=== PATIENT | male | born 1980 | race Caucasian/White ===

== ENCOUNTER 2020-02-19 13:10 | Inpatient (IN) | payer MEDICAID, SELFPAY ==
[2020-02-19 13:11] VITALS: BP 151/106; PULSE 114; RESP 18; TEMP 36.6; O2SAT 95; BMI 35.9
--- NOTE | 2020-02-19 15:58 | ED.VIS.GEN ---
History of Present Illness Informant: Patient Onset: - - 7 years Context: Gradual Onset Timing: Continuous Quality: myalgias, shakes, nausea Location: everywhere Current Severity: Severe Maximum Severity: Severe Worsened by: nothing Relieved by: nothing Associated Symptoms: myalgias, shakes, nausea Narrative: 39-year-old male history of opiate abuse has been on Suboxone now for 7 years presents for wanting detox from Suboxone. Patient states he has been weaned off to about a quarter of a milligram a day but feels like he needs to be admitted for detox in order to get off of it entirely. He does have some nausea and some shaking. No fevers no vomiting or diarrhea no chest pain or shortness of breath he has not been hallucinating he denies alcohol or other drug use and he has never had inpatient detox Prior similar symptoms: Yes Recent Illness/Hospitalization: No <Vickey Pabon - Last Filed: 02/19/20 16:49> <Matias Grant - Last Filed: 02/19/20 22:14> Chief Complaint: Substance Abuse Past Medical History Prior records reviewed: Yes Past Medical History: - - Anxiety and depression opiate abuse GERD hypothyroidism sleep apnea Surgical History: no surgical history Lives: With Family Smoking Status: Never smoker Alcohol: None Drugs: - - History of opiate abuse on Suboxone <Vickey Pabon - Last Filed: 02/19/20 16:49> - Family History Maternal Family History: Reports: - - Denies known medical history including cardiac history. Paternal Family History: Reports: - - Denies known medical history including cardiac history. <Matias Grant - Last Filed: 02/19/20 22:14> - Allergies and Home Meds Allergies/Adverse Reactions: Allergies amlodipine Allergy (Verified 02/19/20 13:13) Anaphylaxis Review of Systems All systems negative except as indicated General: Denies: Chills, Fever, Sweats Eyes: Denies: Visual changes - bilaterally, Diplopia ENT: Denies: Rhinorrhea, Sore throat Cardiovascular: Denies: Chest pain, Palpitations Respiratory: Denies: Dyspnea, Cough, Dyspnea on exertion Gastrointestinal: Reports: Nausea. Denies: Abdominal pain, Vomiting, Diarrhea, Constipation, Melena, Hematochezia Genitourinary: Denies: Dysuria, Hematuria, Frequency Musculoskeletal: Reports: Myalgias. Denies: Arthralgias, Neck pain, Back pain, Swelling, Extremity Pain Skin: Denies: Rash, Wounds Neurological: Denies: Headache, Weakness, Parasthesia, Numbness <Vickey Pabon - Last Filed: 02/19/20 16:49> Physical Exam Vital Signs/Narrative: Vital Signs Temp Pulse Resp BP Pulse Ox 02/19/20 13:11 98 F 114 H 18 151/106 H 95 Inital Vital Signs reviewed: Yes General: Well nourished, Well developed, No Acute Distress Head: Normocephalic, Atraumatic Eyes: Perrl, EOMI ENT: Moist mucous membranes, No rhinorrhea Neck: Supple, Nontender, No lymphadenopathy Cardiovascular: Regular rate, Regular rhythm, No murmurs Respiratory: No distress, CTA bilaterally, Chest nontender Abdomen: Soft, Nontender, Nondistended, Normal bowel sounds Back: Nontender, Normal Inspection. Negative for: CVA tenderness Extremities: Nontender, No edema Skin: Normal color, No rash Neurological: Alert, Oriented x3, Cranial nerves II-XII grossly intact, Normal Strength, Normal Sensation Psychological: Normal affect, Normal Mood. Negative for: Depressed, Tearful, Agitated <Vickey Pabon - Last Filed: 02/19/20 16:49> Diagnostic/Tx/Re-eval Laboratory Results 02/19/20 02/19/20 02/19/20 15:24 15:24 15:24 WBC 7.7 RBC 4.94 Hgb 16.8 H Hct 48.0 MCV 97.2 H MCH 34.0 H MCHC 35.0 RDW Std Deviation 50.8 H RDW Coeff of Dennis 14.2 Plt Count 276 MPV 9.7 Immature Gran % (Auto) 0.400 Neut % (Auto) 75.5 H Lymph % (Auto) 15.9 L [place] % (Auto) 7.4 Eos % (Auto) 0.1 Baso % (Auto) 0.7 Absolute Neuts (auto) 5.8 Absolute Lymphs (auto) 1.22 Nucleated RBC % 0 Sodium 139 Potassium 3.2 L Chloride 107 Carbon Dioxide 25.0 Anion Gap 7 BUN 9 Creatinine 0.86 Estim Creat Clear Calc 117.89 Est GFR (MDRD) Af Amer 126 Est GFR (MDRD) Non-Af 104 BUN/Creatinine Ratio 10.4 Glucose 89 Calcium 9.4 Urine Opiates Screen Urine Methadone Screen Ur Barbiturates Screen Ur Phencyclidine Scrn Ur Amphetamines Screen U Methamphetamin-MDMA U Benzodiazepines Scrn Urine Cocaine Screen U Cannabinoids Screen Ur Drug Screen Comment Ethyl Alcohol 34.0 02/19/20 15:26 WBC RBC Hgb Hct MCV MCH MCHC RDW Std Deviation RDW Coeff of Dennis Plt Count MPV Immature Gran % (Auto) Neut % (Auto) Lymph % (Auto) [place] % (Auto) Eos % (Auto) Baso % (Auto) Absolute Neuts (auto) Absolute Lymphs (auto) Nucleated RBC % Sodium Potassium Chloride Carbon Dioxide Anion Gap BUN Creatinine Estim Creat Clear Calc Est GFR (MDRD) Af Amer Est GFR (MDRD) Non-Af BUN/Creatinine Ratio Glucose Calcium Urine Opiates Screen NEGATIVE Urine Methadone Screen NEGATIVE Ur Barbiturates Screen NEGATIVE Ur Phencyclidine Scrn NEGATIVE Ur Amphetamines Screen NEGATIVE U Methamphetamin-MDMA NEGATIVE U Benzodiazepines Scrn NEGATIVE Urine Cocaine Screen NEGATIVE U Cannabinoids Screen POSITIVE H Ur Drug Screen Comment Ethyl Alcohol - Medical Decision Making Patient remained calm and cooperative that his stay in the emergency department. His laboratory work-up was remarkable for potassium 3.2. This was replaced with 40 mEq of oral potassium chloride. Drug screen was positive for marijuana. Alcohol was 34. I spoke with the hospitalist to admit the patient for detox. Patient stable at this time. <Vickey Pabon - Last Filed: 02/19/20 16:49> - Medical Decision Making Attending note: Patient seen and evaluated home economist consumer service. I agree with plan and work-up. I performed on [id number] evaluation. Patient here for detox from Suboxone. Has been being weaned down down to 1/4 mg with last dose taken yesterday. He states nausea symptoms and cannot seem to get off it wishes to get help. He is followed at [facility]. Small amount of alcohol today. States had previous history of heroin dependence. Exam alert nontoxic patient in no acute distress. No suicidal ideations. Medical clearance labs obtained, tox screen noted THC. Alcohol slightly. Potassium was 3.2 however declined replacement. Discussed with hospitalist for admission. <Matias Grant - Last Filed: 02/19/20 22:14> ED Disposition <Vickey Pabon - Last Filed: 02/19/20 16:49> <Matias Grant - Last Filed: 02/19/20 22:14> - Plan for ED Patient: Disposition: Acute Care Hospital [facility] Diagnosis: Polysubstance dependence
[2020-02-19 16:02] LABS: Absolute Lymphocyte Count 1.22 X10^3/uL (0.83-4.51); Absolute Neutrophil Count 5.8 X10^3/uL (2.0-7.7); Basophil# 0.05 X10^3/uL; Basophil% 0.7 % (0-1); Eosinophil# 0.01 X10^3/uL; Eosinophils% 0.1 % (0-5); Hemoglobin 16.8 g/dL (13.0-16.5); Lymphocyte # 1.22 X10^3/ul (4.0); Lymphocyte % 15.9 % (19-41); Mean Corpuscular Volume 97.2 fL (80-94); Mean Platelet Vol. 9.7 fl (6.2-12.0); Monocyte# 0.57 X10^3/uL; Monocyte% 7.4 % (0-10); NRBC Flagged by Analyzer 0 % (0-5); Neutrophil # 5.81 X10^3/uL (2.7-7.7); Neutrophil % 75.5 % (47-70); Platelet Count 276 K/mm3 (150-450); RBC Distribution Width CV 14.2 % (11.6-14.6); RBC Distribution Width SD 50.8 fl (35.1-43.9); Red Blood Count 4.94 M/mm3 (4.6-6.2); White Blood Count 7.7 K/mm3 (4.4-11.0)
[2020-02-19 16:07] LABS: Amphetamine Urine VISTA NEGATIVE (<1000 ng/mL); Barbiturate Urine VISTA NEGATIVE (< 200 ng/mL); Benzodiazepine Urine VISTA NEGATIVE (< 200 ng/mL); Cocaine Urine VISTA NEGATIVE (< 300 ng/mL); Ecstacy Urine VISTA NEGATIVE (< 500 ng/mL); Methadone Urine VISTA NEGATIVE (< 300 ng/mL); PCP Urine VISTA NEGATIVE (< 25 ng/mL); THC Urine VISTA POSITIVE (< 50 ng/mL); Vista UDS pH Range 6
[2020-02-19 16:08] LABS: Anion Gap 7 (5-15); BUN 9 mg/dL (7-18); BUN/Creat Ratio 10.4 RATIO (10-20); Calcium,Total 9.4 mg/dL (8.5-10.1); Chloride 107 mmol/L (98-107); Creatinine, Serum 0.86 mg/dL (0.70-1.30); EST Glomerular Filtration Rate 104 mL/min (>60); Est Glom Filt Rate - Afr Amer 126 mL/min (>60); Estimated Creatinine Clearance 117.89 ml/min; Glucose 89 mg/dL (74-106); Potassium 3.2 mmol/L (3.5-5.1); Sodium Level 139 mmol/L (136-145)
[2020-02-19 16:09] VITALS: BMI 35.9
[2020-02-19 16:35] VITALS: BP 160/106; PULSE 111; RESP 18; O2SAT 96
--- NOTE | 2020-02-19 16:47 | NURSING ---
DR WALL FOR DR LINARES
[2020-02-19 16:49] VITALS: BP 160/106; PULSE 111; RESP 18; TEMP 36.4; O2SAT 99
--- NOTE | 2020-02-19 17:01 | PCM.HP.STD ---
<Mali Langford LEGAL DEPARTMENT MANAGER - Last Filed: 02/19/20 17:57> Problem List (1) Polysubstance dependence Status: Acute History of Present Illness Date of Admission: 02/19/20 Chief Complaint: Detox from Suboxone. The patient is a 39 year old M who presents to the emergency room requesting detox from Suboxone. Patient states he has been on Suboxone since 2013 following history of opioid abuse. Patient states he had a prior history of using opioids since his early 20s which progressed to IV heroin. Patient states he has been weaning off of Suboxone under the direction of a physician and took his last dose on . He currently complains of significant anxiety, clamminess, diarrhea and abdominal cramping. He reports he has had recent increased stress and has been using alcohol to cope. He reports he typically drinks a sixpack per day. He also states he is a medical marijuana user. He denies other medical history. Denies tobacco use or other drug use. Past Medical History Allergies amlodipine Allergy (Verified 02/19/20 13:13) Anaphylaxis Home Medications: Ambulatory Orders Medication Instructions Recorded NK 02/19/20 Surgical History: - - Multiple right ankle surgeries, right testicle cystocele repair. Psychiatric History: No pertinent psych hx Lives: With Family Smoking Status: Never smoker Tobacco Use: Non-smoker Alcohol: None Drugs: - - History of opiate abuse on Suboxone - *Family History Maternal History Items: - - Denies known medical history including cardiac history. Paternal History Items: - - Denies known medical history including cardiac history. Review of Systems Constitutional: Reports: Chills. Denies: Fever, Malaise, Weakness HEENT: Denies: Head Aches, Sinus Congestion, Sinus Drainage Cardiovascular: Denies: Chest Pain, Palpitations Respiratory: Denies: Cough, Shortness of breath at rest, Sputum production Gastrointestinal: Reports: Diarrhea, Nausea. Denies: Abdominal Pain, Vomiting Genitourinary: Denies: Dysuria Musculoskeletal: Denies: Joint Pain, Joint Tenderness Skin: Denies: Rash, Wounds Neurological: Denies: Numbness, Tingling, Focal weakness Psychiatric: Reports: Anxiety. Denies: Depression, Homicidal Ideations, Suicidal Ideations Hematologic/ Lymphatic: Denies: Easy Bruising, Easy Bleeding VTE Information - Inpt Only VTE Present on Admission: No VTE Mechan Device Prophylaxis: None VTE Pharm Prophylaxis ordered?: No Reason prophylaxis not ordered:: Treatment Not Indicated Patient Problems: Active and Suspected Problems Polysubstance dependence (Acute) - Physical Exam Vitals/I&O's: Vital Signs Temp Pulse Resp BP Pulse Ox 97.5 F L 111 H 18 160/106 H 99 02/19/20 16:49 02/19/20 16:49 02/19/20 16:49 02/19/20 16:49 02/19/20 16:49 Oxygen Delivery Method Room Air Weight: 250 lb Body Mass Index (BMI) 35.9 General: Alert, Oriented x3, Cooperative HEENT: Atraumatic, PERRLA, EOMI, Normocephalic Neck: Supple, No JVD, Negative Carotid Bruits Lungs: Clear to auscultation, Normal air movement Cardiovascular: Regular rate, No murmurs Abdomen: Bowel Sounds Present, Soft, Non Tender, Non-Distended Extremities: No clubbing, No cyanosis, No edema, Capillary Refill Less than 3 Seconds Skin: No rashes, No breakdown Musculoskeletal: No Tenderness to Palpation of Joints or Extremities Neurological: Cranial nerves II-XII grossly intact, Neuro grossly intact Psych/Mental Status: Agitated Laboratory Results 02/19/20 15:24: WBC 7.7, RBC 4.94, Hgb 16.8 H, Hct 48.0, MCV 97.2 H, MCH 34.0 H, MCHC 35.0, RDW Std Deviation 50.8 H, RDW Coeff of Dennis 14.2, Plt Count 276, MPV 9.7, Immature Gran % (Auto) 0.400, Neut % (Auto) 75.5 H, Lymph % (Auto) 15.9 L, [place] % (Auto) 7.4, Eos % (Auto) 0.1, Baso % (Auto) 0.7, Absolute Neuts (auto) 5.8, Absolute Lymphs (auto) 1.22, Nucleated RBC % 0 02/19/20 15:24: Sodium 139, Potassium 3.2 L, Chloride 107, Carbon Dioxide 25.0, Anion Gap 7, BUN 9, Creatinine 0.86, Estim Creat Clear Calc 117.89, Est GFR (MDRD) Af Amer 126, Est GFR (MDRD) Non-Af 104, BUN/Creatinine Ratio 10.4, Glucose 89, Calcium 9.4 02/19/20 15:24: Ethyl Alcohol 34.0 02/19/20 15:26: Urine Opiates Screen NEGATIVE, Urine Methadone Screen NEGATIVE, Ur Barbiturates Screen NEGATIVE, Ur Phencyclidine Scrn NEGATIVE, Ur Amphetamines Screen NEGATIVE, U Methamphetamin-MDMA NEGATIVE, U Benzodiazepines Scrn NEGATIVE, Urine Cocaine Screen NEGATIVE, U Cannabinoids Screen POSITIVE H, Ur Drug Screen Comment Assessment/Plan All Active Problems Polysubstance dependence (Acute) 1. Suboxone detox-medical stabilization per protocol. As needed regimen for somatic complaints. Tox screen negative except cannabinoids. 2. History of polysubstance abuse-reports marijuana use. Denies other substance use. Tox screen positive for marijuana, negative for other substances. 3. Alcohol dependence-states he just recently began using alcohol to cope. Reports 6 beers per day. Denies withdrawal history. Suspect patient may be using alcohol more than he is admitting. CIWA protocol. Medical stabilization per alcohol withdrawal protocol. DVT prophylaxis-not indicated, low risk This patient was seen by STEVIE Quick under the supervision of Dr. Henning. <Starla Henning - Last Filed: 02/19/20 18:15> History of Present Illness The patient is a 39 year old M [] Past Medical History Allergies amlodipine Allergy (Verified 02/19/20 13:13) Anaphylaxis - Physical Exam Vitals/I&O's: Vital Signs Temp Pulse Resp BP Pulse Ox 97.5 F L 111 H 18 160/106 H 99 02/19/20 16:49 02/19/20 16:49 02/19/20 16:49 02/19/20 16:49 02/19/20 16:49 Oxygen Delivery Method Room Air Weight: 250 lb Body Mass Index (BMI) 35.9 Laboratory Results 02/19/20 15:24: WBC 7.7, RBC 4.94, Hgb 16.8 H, Hct 48.0, MCV 97.2 H, MCH 34.0 H, MCHC 35.0, RDW Std Deviation 50.8 H, RDW Coeff of Dennis 14.2, Plt Count 276, MPV 9.7, Immature Gran % (Auto) 0.400, Neut % (Auto) 75.5 H, Lymph % (Auto) 15.9 L, [place] % (Auto) 7.4, Eos % (Auto) 0.1, Baso % (Auto) 0.7, Absolute Neuts (auto) 5.8, Absolute Lymphs (auto) 1.22, Nucleated RBC % 0 02/19/20 15:24: Sodium 139, Potassium 3.2 L, Chloride 107, Carbon Dioxide 25.0, Anion Gap 7, BUN 9, Creatinine 0.86, Estim Creat Clear Calc 117.89, Est GFR (MDRD) Af Amer 126, Est GFR (MDRD) Non-Af 104, BUN/Creatinine Ratio 10.4, Glucose 89, Calcium 9.4 02/19/20 15:24: Ethyl Alcohol 34.0 02/19/20 15:26: Urine Opiates Screen NEGATIVE, Urine Methadone Screen NEGATIVE, Ur Barbiturates Screen NEGATIVE, Ur Phencyclidine Scrn NEGATIVE, Ur Amphetamines Screen NEGATIVE, U Methamphetamin-MDMA NEGATIVE, U Benzodiazepines Scrn NEGATIVE, Urine Cocaine Screen NEGATIVE, U Cannabinoids Screen POSITIVE H, Ur Drug Screen Comment Assessment/Plan Patient seen by Mali HUBBARD under my supervision Patient was admitted via the ED on 02/19/2020 for withdrawal from suboxone. He had been on suboxone since 2012, as prescribed by a physician, and says he was being weaned off of it gradually; with his last dose being 1 day prior to admission. He now felt he was withdrawing from his suboxone, and complained of anxiety, clamminess, diarrhea and abdominal cramping. He has also been drinking alcohol, and says he's been using his alcohol to help him cope. Review of systems was otherwise negative. O/E: Vital Signs Temp Pulse Resp BP Pulse Ox 97.5 F L 111 H 18 160/106 H 99 02/19/20 16:49 02/19/20 16:49 02/19/20 16:49 02/19/20 16:49 02/19/20 16:49 General: Alert, Oriented x3, Cooperative HEENT: Atraumatic, PERRLA, EOMI, Normocephalic Neck: Supple, No JVD, Negative Carotid Bruits Lungs: Clear to auscultation, Normal air movement Cardiovascular: Regular rate, No murmurs Abdomen: Bowel Sounds Present, Soft, Non Tender, Non-Distended Extremities: No clubbing, No cyanosis, No edema, Capillary Refill Less than 3 Seconds Skin: No rashes, No breakdown Musculoskeletal: No Tenderness to Palpation of Joints or Extremities Neurological: Cranial nerves II-XII grossly intact, Neuro grossly intact Psych/Mental Status: has pressured speech Plan is to put patient on buprenorphine withdrawal protocol. Will also put on alcohol withdrawal protocol with phenobarbital in light of patient's excessive use of alcohol. Monitor CINA and CIWA score. Potassium is 3.2 today. Will replace. Thiamine, folic acid and multivites. Rest as per Mali Langford LEGAL DEPARTMENT MANAGER-C';s note, which I have reviewed and endorsed. Inpatient E&M: [id number] Init Hosp L3
--- NOTE | 2020-02-19 17:19 | CM.ED ---
SOCIAL WORK Informant: ROB Pabon Reason for Consult: Substance Abuse-Detox from Suboxone Met with patient in room. Introduced role and reason for referral. Patient open to speaking with this worker. Patient has been receiving outpatient treatment through [facility]. Patient states started on Subutex in September 2012. Patient states currently on a quarter milligram of Suboxone and wishes to detox from Suboxone. Patient admits to history of anxiety and depression and states was treated with medication in the past. Patient states open to inpatient or residential treatment after detox and wishes to explore these options further. Informed patient an assessment will be completed with [facility] personal care worker during admission for detox. Patient denies any questions or concerns. Call to [facility] Treatment Navigator, Adolph. Adolph updated on the above and reports will be in tomorrow to complete assessment. Plan: Admit to ADA Vega, SENIOR ENERGY CONSULTANT, REPACKER
[2020-02-19 18:02] VITALS: BMI 37.1
[2020-02-19 18:18] VITALS: BP 141/88; PULSE 96; RESP 18; TEMP 36.8; O2SAT 98
[2020-02-19] MEDS: Phenobarbital 32.4 MG Tablet PO ×2 (18:31→22:17)
[2020-02-19 22:19] VITALS: BP 104/81; PULSE 81; RESP 16; TEMP 35.9; O2SAT 99
[2020-02-19 23:00] VITALS: BP 115/45; PULSE 85; RESP 18; TEMP 36.7; O2SAT 99
[2020-02-20] VITALS (7 sets, daily range): BP systolic 129–178; BP diastolic 88–105; PULSE 70–87; RESP 16–18; TEMP 36.4–36.9; O2SAT 96–100
[2020-02-20] MEDS: Phenobarbital 32.4 MG Tablet PO ×6 (03:02→23:04)
[2020-02-20] MEDS: Loperamide 2 MG Capsule PO ×2 (03:19→06:56)
[2020-02-20] MEDS: hydrOXYzine PAM 25 MG Capsule 50 MG PO (03:32)
[2020-02-20] MEDS: Gabapentin 300 MG Capsule PO (06:56)
--- NOTE | 2020-02-20 10:36 | PCM.PROGNOTE ---
<PrimitivoMali MEDICAL BILLER/CODER - Last Filed: 02/20/20 10:41> Patient Problems: Active and Suspected Problems Polysubstance dependence (Acute) Subjective: Patient seen and examined. Reports withdrawal symptoms have improved and he slept well overnight. Denies current symptoms or complaints. - Physical Exam Vitals/I&O's: Vital Signs Temp Pulse Resp BP Pulse Ox 98.1 F 84 18 129/88 H 96 02/20/20 08:40 02/20/20 09:50 02/20/20 08:40 02/20/20 08:40 02/20/20 08:40 Oxygen Delivery Method Room Air Weight: 259 lb Body Mass Index (BMI) 37.1 Intake and Output for Last 24 Hours 02/18/20 02/19/20 02/20/20 23:59 23:59 23:59 Intake Total 400 / 400 Balance 400 / 400 General: Alert, Oriented x3, Cooperative HEENT: Atraumatic, PERRLA, EOMI, Normocephalic Neck: Supple, No JVD, Negative Carotid Bruits Lungs: Clear to auscultation, Normal air movement Cardiovascular: Regular rate, No murmurs Abdomen: Bowel Sounds Present, Soft, Non Tender Extremities: No edema, Capillary Refill Less than 3 Seconds Skin: No rashes, No breakdown Musculoskeletal: No Tenderness to Palpation of Joints or Extremities Neurological: Cranial nerves II-XII grossly intact Psych/Mental Status: Normal Affect, Appropriate Laboratory Results 02/19/20 15:24: WBC 7.7, RBC 4.94, Hgb 16.8 H, Hct 48.0, MCV 97.2 H, MCH 34.0 H, MCHC 35.0, RDW Std Deviation 50.8 H, RDW Coeff of Dennis 14.2, Plt Count 276, MPV 9.7, Immature Gran % (Auto) 0.400, Neut % (Auto) 75.5 H, Lymph % (Auto) 15.9 L, [place] % (Auto) 7.4, Eos % (Auto) 0.1, Baso % (Auto) 0.7, Absolute Neuts (auto) 5.8, Absolute Lymphs (auto) 1.22, Nucleated RBC % 0 02/19/20 15:24: Sodium 139, Potassium 3.2 L, Chloride 107, Carbon Dioxide 25.0, Anion Gap 7, BUN 9, Creatinine 0.86, Estim Creat Clear Calc 117.89, Est GFR (MDRD) Af Amer 126, Est GFR (MDRD) Non-Af 104, BUN/Creatinine Ratio 10.4, Glucose 89, Calcium 9.4 02/19/20 15:24: Ethyl Alcohol 34.0 02/19/20 15:26: Urine Opiates Screen NEGATIVE, Urine Methadone Screen NEGATIVE, Ur Barbiturates Screen NEGATIVE, Ur Phencyclidine Scrn NEGATIVE, Ur Amphetamines Screen NEGATIVE, U Methamphetamin-MDMA NEGATIVE, U Benzodiazepines Scrn NEGATIVE, Urine Cocaine Screen NEGATIVE, U Cannabinoids Screen POSITIVE H, Ur Drug Screen Comment Current Medications Clonidine (Clonidine Hcl 0.1 Mg Tablet) 0.1 mg PO Q8H PRN PRN PRN Reason: RESTLESSNESS Dicyclomine HCl (Dicyclomine 10 Mg Capsule) 20 mg PO Q6H PRN PRN PRN Reason: Abdominal Discomfort Folic Acid (Folic Acid 1 Mg Tablet) 1 mg PO DAILY@0800 [facility] Last Admin: 02/20/20 08:35 Dose: Not Given Documented by: Gabapentin (Gabapentin 300 Mg Capsule) 300 mg PO Q8H PRN PRN PRN Reason: moderate to severe anxiety Last Admin: 02/20/20 06:56 Dose: 300 mg Documented by: Hydroxyzine Pamoate (Hydroxyzine Jaylene 25 Mg Capsule) 50 mg PO Q6H PRN PRN PRN Reason: mild anxiety Last Admin: 02/20/20 03:32 Dose: 50 mg Documented by: Loperamide HCl (Loperamide 2 Mg Capsule) 2 mg PO Q4H PRN PRN PRN Reason: LOOSE STOOLS Last Admin: 02/20/20 06:56 Dose: 2 mg Documented by: Melatonin (Melatonin 10 Mg Tablet) 10 mg PO QHS PRN PRN PRN Reason: INSOMNIA Methocarbamol (Methocarbamol 750 Mg Tablet) 1,500 mg PO Q6H PRN PRN PRN Reason: MUSCLE SPASM Ondansetron HCl (Ondansetron 8 Mg Tablet) 8 mg PO Q8H PRN PRN PRN Reason: NAUSEA Phenobarbital (Phenobarbital 32.4 Mg Tablet) 97.2 mg PO Q4H [facility]; Taper Stop: 02/24/20 02:59 Last Admin: 02/20/20 07:21 Dose: 97.2 mg Documented by: Sodium Chloride (0.9% Saline Lock 10 Ml Syringe) 10 - 40 ml IV UD PRN PRN Reason: SALINE FLUSH Thiamine HCl (Thiamine Hydrochloride 100 Mg Tablet) 100 mg PO DAILYCM [facility] Last Admin: 02/20/20 08:35 Dose: Not Given Documented by: Trazodone HCl (Trazodone 100 Mg Tablet) 100 mg PO QHS PRN PRN PRN Reason: INSOMNIA Medical Necessity - Tobacco Use Smoking Status: Never smoker Tobacco Use: Non-smoker Assessment/Plan All Active Problems Polysubstance dependence (Acute) 1. Suboxone detox-medical stabilization per protocol. As needed regimen for somatic complaints. Tox screen negative except cannabinoids. 2. History of polysubstance abuse-reports marijuana use. Denies other substance use. Tox screen positive for marijuana, negative for other substances. 3. Alcohol dependence-states he just recently began using alcohol to cope. Reports 6 beers per day. Denies withdrawal history. CIWA protocol. Medical stabilization per alcohol withdrawal protocol. Phenobarbital taper. [facility] consult. DVT prophylaxis-not indicated, low risk This patient was seen by STEVIE Quick under the supervision of Dr. Bucio. <Salo Bucio F - Last Filed: 02/20/20 18:00> - Physical Exam Vitals/I&O's: Vital Signs Temp Pulse Resp BP Pulse Ox 98.2 F 83 18 149/89 H 98 02/20/20 13:55 02/20/20 13:55 02/20/20 13:55 02/20/20 13:55 02/20/20 13:55 Oxygen Delivery Method Room Air Weight: 259 lb Body Mass Index (BMI) 37.1 Intake and Output for Last 24 Hours 02/18/20 02/19/20 02/20/20 23:59 23:59 23:59 Intake Total 400 / 400 Balance 400 / 400 Current Medications Clonidine (Clonidine Hcl 0.1 Mg Tablet) 0.1 mg PO Q8H PRN PRN PRN Reason: RESTLESSNESS Dicyclomine HCl (Dicyclomine 10 Mg Capsule) 20 mg PO Q6H PRN PRN PRN Reason: Abdominal Discomfort Folic Acid (Folic Acid 1 Mg Tablet) 1 mg PO DAILY@0800 [facility] Last Admin: 02/20/20 08:35 Dose: Not Given Documented by: Gabapentin (Gabapentin 300 Mg Capsule) 300 mg PO Q8H PRN PRN PRN Reason: moderate to severe anxiety Last Admin: 02/20/20 06:56 Dose: 300 mg Documented by: Hydroxyzine Pamoate (Hydroxyzine Jaylene 25 Mg Capsule) 50 mg PO Q6H PRN PRN PRN Reason: mild anxiety Last Admin: 02/20/20 03:32 Dose: 50 mg Documented by: Loperamide HCl (Loperamide 2 Mg Capsule) 2 mg PO Q4H PRN PRN PRN Reason: LOOSE STOOLS Last Admin: 02/20/20 06:56 Dose: 2 mg Documented by: Melatonin (Melatonin 10 Mg Tablet) 10 mg PO QHS PRN PRN PRN Reason: INSOMNIA Methocarbamol (Methocarbamol 750 Mg Tablet) 1,500 mg PO Q6H PRN PRN PRN Reason: MUSCLE SPASM Ondansetron HCl (Ondansetron 8 Mg Tablet) 8 mg PO Q8H PRN PRN PRN Reason: NAUSEA Phenobarbital (Phenobarbital 32.4 Mg Tablet) 97.2 mg PO Q4H [facility]; Taper Stop: 02/24/20 02:59 Last Admin: 02/20/20 15:00 Dose: 97.2 mg Documented by: Sodium Chloride (0.9% Saline Lock 10 Ml Syringe) 10 - 40 ml IV UD PRN PRN Reason: SALINE FLUSH Thiamine HCl (Thiamine Hydrochloride 100 Mg Tablet) 100 mg PO DAILYCM [facility] Last Admin: 02/20/20 08:35 Dose: Not Given Documented by: Trazodone HCl (Trazodone 100 Mg Tablet) 100 mg PO QHS PRN PRN PRN Reason: INSOMNIA Addendum: Dr. Bucio I personally examined the patient and reviewed the chart. I agree with the above. 39-year-old male who recently completed a 2-year Suboxone taper. He has been drinking and has requested phenobarbital instead of Suboxone taper. He is also concerned about some of the other drugs he takes for symptom management however his symptoms are improved today. We will continue with the alcohol withdrawal taper and have him follow-up with [facility] as an outpatient. Inpatient E&M: [id number] [facility] Hosp L2
[2020-02-21 02:22] VITALS: BP 133/72; PULSE 72; RESP 18; TEMP 36.4; O2SAT 98
[2020-02-21] MEDS: Phenobarbital 32.4 MG Tablet PO ×6 (02:26→22:49)
[2020-02-21] MEDS: MELATONIN 10 MG TABLET PO ×2 (02:26→22:49)
[2020-02-21 07:50] VITALS: PULSE 72
[2020-02-21 10:26] VITALS: BP 142/100; PULSE 70; RESP 18; TEMP 36.8; O2SAT 99
--- NOTE | 2020-02-21 10:29 | PCM.PROGNOTE ---
<PrimitivoMali WAREHOUSE RECEIVER - Last Filed: 02/21/20 10:43> Patient Problems: Active and Suspected Problems Polysubstance dependence (Acute) Subjective: Patient seen and examined. States he does not feel good however denies specific withdrawal symptoms. Requesting to stay until Saturday. - Physical Exam Vitals/I&O's: Vital Signs Temp Pulse Resp BP Pulse Ox 97.6 F L 72 18 133/72 H 98 02/21/20 02:22 02/21/20 07:50 02/21/20 02:22 02/21/20 02:22 02/21/20 02:22 Oxygen Delivery Method Room Air Weight: 259 lb Body Mass Index (BMI) 37.1 Intake and Output for Last 24 Hours 02/19/20 02/20/20 02/21/20 23:59 23:59 23:59 Intake Total 400 / 400 600 / 600 Balance 400 / 400 600 / 600 General: Alert, Oriented x3, Cooperative HEENT: Atraumatic, PERRLA, EOMI, Normocephalic Neck: Supple, No JVD, Negative Carotid Bruits Lungs: Clear to auscultation, Normal air movement Cardiovascular: Regular rate, No murmurs Abdomen: Bowel Sounds Present, Soft, Non Tender, Non-Distended Extremities: No clubbing, No cyanosis, No edema, Capillary Refill Less than 3 Seconds Skin: No rashes, No breakdown Musculoskeletal: No Tenderness to Palpation of Joints or Extremities Neurological: Cranial nerves II-XII grossly intact, Neuro grossly intact Psych/Mental Status: Normal Affect, Appropriate Current Medications Clonidine (Clonidine Hcl 0.1 Mg Tablet) 0.1 mg PO Q8H PRN PRN PRN Reason: RESTLESSNESS Dicyclomine HCl (Dicyclomine 10 Mg Capsule) 20 mg PO Q6H PRN PRN PRN Reason: Abdominal Discomfort Folic Acid (Folic Acid 1 Mg Tablet) 1 mg PO DAILY@0800 [facility] Last Admin: 02/21/20 07:58 Dose: Not Given Documented by: Gabapentin (Gabapentin 100 Mg Capsule) 100 mg PO Q6H PRN PRN PRN Reason: ANXIETY Hydroxyzine Pamoate (Hydroxyzine Jaylene 25 Mg Capsule) 50 mg PO Q6H PRN PRN PRN Reason: mild anxiety Last Admin: 02/20/20 03:32 Dose: 50 mg Documented by: Loperamide HCl (Loperamide 2 Mg Capsule) 2 mg PO Q4H PRN PRN PRN Reason: LOOSE STOOLS Last Admin: 02/20/20 06:56 Dose: 2 mg Documented by: Melatonin (Melatonin 10 Mg Tablet) 10 mg PO QHS PRN PRN PRN Reason: INSOMNIA Last Admin: 02/21/20 02:26 Dose: 10 mg Documented by: Methocarbamol (Methocarbamol 750 Mg Tablet) 1,500 mg PO Q6H PRN PRN PRN Reason: MUSCLE SPASM Ondansetron HCl (Ondansetron 8 Mg Tablet) 8 mg PO Q8H PRN PRN PRN Reason: NAUSEA Phenobarbital (Phenobarbital 32.4 Mg Tablet) 64.8 mg PO Q4H ALYSA; Taper Stop: 02/24/20 02:59 Last Admin: 02/21/20 06:43 Dose: 64.8 mg Documented by: Sodium Chloride (0.9% Saline Lock 10 Ml Syringe) 10 - 40 ml IV UD PRN PRN Reason: SALINE FLUSH Thiamine HCl (Thiamine Hydrochloride 100 Mg Tablet) 100 mg PO DAILYCM ALYSA Last Admin: 02/21/20 07:58 Dose: Not Given Documented by: Trazodone HCl (Trazodone 100 Mg Tablet) 100 mg PO QHS PRN PRN PRN Reason: INSOMNIA Medical Necessity - Tobacco Use Smoking Status: Never smoker Tobacco Use: Non-smoker Assessment/Plan All Active Problems Polysubstance dependence (Acute) 1. Suboxone detox-medical stabilization per protocol. As needed regimen for somatic complaints. Tox screen negative except cannabinoids. 2. History of polysubstance abuse-reports marijuana use. Denies other substance use. Tox screen positive for marijuana, negative for other substances. 3. Alcohol dependence-states he just recently began using alcohol to cope. Reports 6 beers per day. Denies withdrawal history. CIWA protocol. Medical stabilization per alcohol withdrawal protocol. Phenobarbital taper. [employer] consult. DVT prophylaxis-not indicated, low risk This patient was seen by [facility] under the supervision of Dr. Bucio. <Salo Bucio F - Last Filed: 02/21/20 18:18> - Physical Exam Vitals/I&O's: Vital Signs Temp Pulse Resp BP Pulse Ox 98.3 F 69 18 153/98 H 99 02/21/20 14:00 02/21/20 14:00 02/21/20 14:00 02/21/20 14:00 02/21/20 14:00 Oxygen Delivery Method Room Air Weight: 259 lb Body Mass Index (BMI) 37.1 Intake and Output for Last 24 Hours 02/19/20 02/20/20 02/21/20 23:59 23:59 23:59 Intake Total 400 / 400 600 / 600 Balance 400 / 400 600 / 600 Current Medications Clonidine (Clonidine Hcl 0.1 Mg Tablet) 0.1 mg PO Q8H PRN PRN PRN Reason: RESTLESSNESS Dicyclomine HCl (Dicyclomine 10 Mg Capsule) 20 mg PO Q6H PRN PRN PRN Reason: Abdominal Discomfort Folic Acid (Folic Acid 1 Mg Tablet) 1 mg PO DAILY@0800 [facility] Last Admin: 02/21/20 07:58 Dose: Not Given Documented by: Gabapentin (Gabapentin 100 Mg Capsule) 100 mg PO Q6H PRN PRN PRN Reason: ANXIETY Hydroxyzine Pamoate (Hydroxyzine Jaylene 25 Mg Capsule) 50 mg PO Q6H PRN PRN PRN Reason: mild anxiety Last Admin: 02/20/20 03:32 Dose: 50 mg Documented by: Loperamide HCl (Loperamide 2 Mg Capsule) 2 mg PO Q4H PRN PRN PRN Reason: LOOSE STOOLS Last Admin: 02/20/20 06:56 Dose: 2 mg Documented by: Melatonin (Melatonin 10 Mg Tablet) 10 mg PO QHS PRN PRN PRN Reason: INSOMNIA Last Admin: 02/21/20 02:26 Dose: 10 mg Documented by: Methocarbamol (Methocarbamol 750 Mg Tablet) 1,500 mg PO Q6H PRN PRN PRN Reason: MUSCLE SPASM Ondansetron HCl (Ondansetron 8 Mg Tablet) 8 mg PO Q8H PRN PRN PRN Reason: NAUSEA Phenobarbital (Phenobarbital 32.4 Mg Tablet) 64.8 mg PO Q4H [facility]; Taper Stop: 02/24/20 02:59 Last Admin: 02/21/20 14:59 Dose: 64.8 mg Documented by: Sodium Chloride (0.9% Saline Lock 10 Ml Syringe) 10 - 40 ml IV UD PRN PRN Reason: SALINE FLUSH Thiamine HCl ([facility] Hydro[facility] 100 Mg [facility]t) [facility] Last Admin: 02/21/20 07:58 Dose: Not Given Documented by: Trazodone HCl (Trazodone 100 Mg Tablet) 100 mg PO QHS PRN PRN PRN Reason: INSOMNIA Addendum: Dr. Bucio I personally examined the patient and reviewed the chart. I agree with the above. 39-year-old male who recently completed a 2-year Suboxone taper. He has been drinking and has requested phenobarbital instead of Suboxone taper. He is also concerned about some of the other drugs he takes for symptom management however his symptoms are improved today. We will continue with the alcohol withdrawal taper and have him follow-up with [facility] as an outpatient. 02/21/2020: Doing well today. He would like to go home on Saturday and would like to see if he can schedule a meeting with [facility]. Tolerating his withdrawal okay from alcohol continue with the phenobarbital and his gabapentin which would change the dosage because he was concerned about starting 300 mg right away therefore he is on 100 mg p.o. every 6 as needed Inpatient E&M: 33984 Subs Hosp L2
[2020-02-21 14:00] VITALS: BP 153/98; PULSE 69; RESP 18; TEMP 36.8; O2SAT 99
[2020-02-21 18:24] VITALS: BP 151/85; PULSE 98; RESP 18; TEMP 36.9; O2SAT 90
[2020-02-21 22:42] VITALS: BP 139/98; PULSE 83; RESP 18; TEMP 36.6; O2SAT 100
[2020-02-22 02:57] VITALS: BP 143/102; PULSE 83; RESP 18; TEMP 36.5; O2SAT 100
[2020-02-22] MEDS: Phenobarbital 32.4 MG Tablet PO ×4 (03:01→21:01)
[2020-02-22 09:00] VITALS: BP 154/98; PULSE 82; RESP 16; TEMP 36.6; O2SAT 100
--- NOTE | 2020-02-22 10:55 | ADDICTION ---
This account underwriter met with patient in his room to complete discharge planning. patient refused coordination but requested information for multiple residential facilities in [place] for his use when he does discharge from [facility]. This account underwriter provided this information to patient. patient to d/c home after completed on Phenobarbital taper. He did not request transportation assistance.
--- NOTE | 2020-02-22 11:24 | PN_ITS ---
<PrimitivoMali MACHINE PACKER - Last Filed: 02/22/20 11:28> Patient Problems: Active and Suspected Problems Polysubstance dependence (Acute) Subjective: Patient seen and examined. States his sleep was improved overnight. Denies significant withdrawal symptoms. States he is anxious about returning home. To meet with [facility] again today. - Physical Exam Vitals/I&O's: Vital Signs Temp Pulse Resp BP Pulse Ox 97.8 F 82 16 154/98 H 100 02/22/20 09:00 02/22/20 09:00 02/22/20 09:00 02/22/20 09:00 02/22/20 09:00 Oxygen Delivery Method Room Air Weight: 259 lb Body Mass Index (BMI) 37.1 Intake and Output for Last 24 Hours 02/20/20 02/21/20 02/22/20 23:59 23:59 23:59 Intake Total 600 / 600 600 / 600 Balance 600 / 600 600 / 600 General: Alert, Oriented x3, Cooperative HEENT: Atraumatic, PERRLA, EOMI, Normocephalic Neck: Supple, No JVD, Negative Carotid Bruits Lungs: Clear to auscultation, Normal air movement Cardiovascular: Regular rate, No murmurs Abdomen: Bowel Sounds Present, Soft, Non Tender, Non-Distended Extremities: No clubbing, No cyanosis, No edema, Capillary Refill Less than 3 Seconds Skin: No rashes, No breakdown Musculoskeletal: No Tenderness to Palpation of Joints or Extremities Neurological: Cranial nerves II-XII grossly intact, Neuro grossly intact Psych/Mental Status: Normal Affect, Appropriate Current Medications Clonidine (Clonidine Hcl 0.1 Mg Tablet) 0.1 mg PO Q8H PRN PRN PRN Reason: RESTLESSNESS Dicyclomine HCl (Dicyclomine 10 Mg Capsule) 20 mg PO Q6H PRN PRN PRN Reason: Abdominal Discomfort Folic Acid (Folic Acid 1 Mg Tablet) 1 mg PO DAILY@0800 [facility] Last Admin: 02/22/20 09:05 Dose: Not Given Documented by: Gabapentin (Gabapentin 100 Mg Capsule) 100 mg PO Q6H PRN PRN PRN Reason: ANXIETY Hydroxyzine Pamoate (Hydroxyzine Jaylene 25 Mg Capsule) 50 mg PO Q6H PRN PRN PRN Reason: mild anxiety Last Admin: 02/20/20 03:32 Dose: 50 mg Documented by: Loperamide HCl (Loperamide 2 Mg Capsule) 2 mg PO Q4H PRN PRN PRN Reason: LOOSE STOOLS Last Admin: 02/20/20 06:56 Dose: 2 mg Documented by: Melatonin (Melatonin 10 Mg Tablet) 10 mg PO QHS PRN PRN PRN Reason: INSOMNIA Last Admin: 02/21/20 22:49 Dose: 10 mg Documented by: Methocarbamol (Methocarbamol 750 Mg Tablet) 1,500 mg PO Q6H PRN PRN PRN Reason: MUSCLE SPASM Ondansetron HCl (Ondansetron 8 Mg Tablet) 8 mg PO Q8H PRN PRN PRN Reason: NAUSEA Phenobarbital (Phenobarbital 32.4 Mg Tablet) 64.8 mg PO Q6H [facility]; Taper Stop: 02/24/20 02:59 Last Admin: 02/22/20 09:04 Dose: 64.8 mg Documented by: Sodium Chloride (0.9% Saline Lock 10 Ml Syringe) 10 - 40 ml IV UD PRN PRN Reason: SALINE FLUSH Thiamine HCl (Thiamine Hydrochloride 100 Mg Tablet) 100 mg PO DAILYCM ALYSA Last Admin: 02/22/20 09:05 Dose: Not Given Documented by: Trazodone HCl (Trazodone 100 Mg Tablet) 100 mg PO QHS PRN PRN PRN Reason: INSOMNIA Medical Necessity - Tobacco Use Smoking Status: Never smoker Tobacco Use: Non-smoker Assessment/Plan All Active Problems Polysubstance dependence (Acute) 1. Suboxone detox-medical stabilization per protocol. As needed regimen for somatic complaints. Tox screen negative except cannabinoids. 2. History of polysubstance abuse-reports marijuana use. Denies other substance use. Tox screen positive for marijuana, negative for other substances. 3. Alcohol dependence-states he just recently began using alcohol to cope. Reports 6 beers per day. Denies withdrawal history. CIWA protocol. Medical stabilization per alcohol withdrawal protocol. Phenobarbital taper. [employer] consulted. DVT prophylaxis-not indicated, low risk This patient was seen by [facility] under the supervision of Dr. Blas. <Brenda Blas - Last Filed: 02/22/20 17:58> - Physical Exam Vitals/I&O's: Vital Signs Temp Pulse Resp BP Pulse Ox 97.8 F 88 16 161/101 H 100 02/22/20 15:00 02/22/20 15:00 02/22/20 15:00 02/22/20 15:00 02/22/20 15:00 Oxygen Delivery Method Room Air Weight: 117.48 kg Body Mass Index (BMI) 37.1 Intake and Output for Last 24 Hours 02/20/20 02/21/20 02/22/20 23:59 23:59 23:59 Intake Total 600 / 600 600 / 600 Balance 600 / 600 600 / 600 Current Medications Clonidine (Clonidine Hcl 0.1 Mg Tablet) 0.1 mg PO Q8H PRN PRN PRN Reason: RESTLESSNESS Dicyclomine HCl (Dicyclomine 10 Mg Capsule) 20 mg PO Q6H PRN PRN PRN Reason: Abdominal Discomfort Folic Acid (Folic Acid 1 Mg Tablet) 1 mg PO DAILY@0800 [facility] Last Admin: 02/22/20 09:05 Dose: Not Given Documented by: Gabapentin (Gabapentin 100 Mg Capsule) 100 mg PO Q6H PRN PRN PRN Reason: ANXIETY Hydroxyzine Pamoate (Hydroxyzine Jaylene 25 Mg Capsule) 50 mg PO Q6H PRN PRN PRN Reason: mild anxiety Last Admin: 02/20/20 03:32 Dose: 50 mg Documented by: Loperamide HCl (Loperamide 2 Mg Capsule) 2 mg PO Q4H PRN PRN PRN Reason: LOOSE STOOLS Last Admin: 02/22/20 17:49 Dose: 2 mg Documented by: Melatonin (Melatonin 10 Mg Tablet) 10 mg PO QHS PRN PRN PRN Reason: INSOMNIA Last Admin: 02/21/20 22:49 Dose: 10 mg Documented by: Methocarbamol (Methocarbamol 750 Mg Tablet) 1,500 mg PO Q6H PRN PRN PRN Reason: MUSCLE SPASM Ondansetron HCl (Ondansetron 8 Mg Tablet) 8 mg PO Q8H PRN PRN PRN Reason: NAUSEA Phenobarbital (Phenobarbital 32.4 Mg Tablet) 64.8 mg PO Q6H [facility]; Taper Stop: 02/24/20 02:59 Last Admin: 02/22/20 15:04 Dose: 32.4 mg Documented by: Sodium Chloride (0.9% Saline Lock 10 Ml Syringe) 10 - 40 ml IV UD PRN PRN Reason: SALINE FLUSH Thiamine HCl (Thiamine Hydrochloride 100 Mg Tablet) 100 mg PO DAILYCM [facility] Last Admin: 02/22/20 09:05 Dose: Not Given Documented by: Trazodone HCl (Trazodone 100 Mg Tablet) 100 mg PO QHS PRN PRN PRN Reason: INSOMNIA Assessment/Plan This patient was seen in conjunction with Mali Langford NP. I have in dependently interviewed and examined the patient and reviewed pertinent historical, laboratory, and other data. Please refer to her note for patient's presentation, findings, and recommendations. Patient was seen and examined. Denied any complaints. No acute event. Vitals were reviewed -stable Physical Exam: Gen: Comfortable, not pale, not jaundiced, alert oriented x3 CVS:HS I +II, regular, no murmurs RESP: CTA GI: BS present and normal, nontender, no palpable organs EXT:No edema Labs reviewed: ASSESSMENT: 1. Acute opioid withdrawal 2. Polysubstance use 3. Alcohol dependence Meds reviewed Plan: Complete withdrawal protocol Inpatient E&M: 86896 Subs Hosp L2
[2020-02-22 15:00] VITALS: BP 161/101; PULSE 88; RESP 16; TEMP 36.6; O2SAT 100
[2020-02-22] MEDS: Loperamide 2 MG Capsule PO (17:49)
[2020-02-22 20:47] VITALS: BP 138/101; PULSE 82; RESP 16; TEMP 36.6; O2SAT 100
[2020-02-22] MEDS: MELATONIN 10 MG TABLET PO (21:00)
[2020-02-23 02:58] VITALS: BP 138/105; PULSE 79; RESP 16; TEMP 36.6; O2SAT 97
[2020-02-23] MEDS: Phenobarbital 32.4 MG Tablet PO ×2 (03:03→09:14)
[2020-02-23 05:37] LABS: Absolute Lymphocyte Count 1.33 X10^3/uL (0.83-4.51); Absolute Neutrophil Count 4.6 X10^3/uL (2.0-7.7); Basophil# 0.04 X10^3/uL; Basophil% 0.6 % (0-1); Eosinophil# 0.09 X10^3/uL; Eosinophils% 1.4 % (0-5); Hematocrit 47.7 % (40-54); Hemoglobin 16.4 g/dL (13.0-16.5); Lymphocyte # 1.33 X10^3/ul (4.0); Mean Corp Hgb Conc 34.4 g/dL (32-36); Mean Corpuscular Hgb 33.6 pg (27.0-32.0); Mean Corpuscular Volume 97.7 fL (80-94); Mean Platelet Vol. 9.8 fl (6.2-12.0); Monocyte# 0.58 X10^3/uL; Monocyte% 8.7 % (0-10); NRBC Flagged by Analyzer 0 % (0-5); Neutrophil # 4.58 X10^3/uL (2.7-7.7); Platelet Count 236 K/mm3 (150-450); RBC Distribution Width CV 13.8 % (11.6-14.6); RBC Distribution Width SD 50.2 fl (35.1-43.9); Red Blood Count 4.88 M/mm3 (4.6-6.2); White Blood Count 6.6 K/mm3 (4.4-11.0)
[2020-02-23 06:01] LABS: ALB/GLOB Ratio 1.1 RATIO (0.9-2.4); AST(SGOT) 16 U/L (15-37); Alanine Aminotransfer ALT/SGPT 36 U/L (16-61); Alkaline Phosphatase 115 U/L (45-117); Anion Gap 5 (5-15); BUN 11 mg/dL (7-18); BUN/Creat Ratio 12.2 RATIO (10-20); Calcium,Total 9.2 mg/dL (8.5-10.1); Chloride 105 mmol/L (98-107); EST Glomerular Filtration Rate 99 mL/min (>60); Est Glom Filt Rate - Afr Amer 119 mL/min (>60); Estimated Creatinine Clearance 112.65 ml/min; Globulin 3.5 g/dL (2.2-4.2); Glucose 101 mg/dL (74-106); Potassium 3.6 mmol/L (3.5-5.1); Protein, Total 7.5 g/dL (6.4-8.2); Sodium Level 139 mmol/L (136-145)
[2020-02-23 07:39] VITALS: BP 150/85; PULSE 78; RESP 18; TEMP 36.2; O2SAT 100
--- NOTE | 2020-02-23 10:26 | CASEMGMT ---
Social Work Note LEFTY updated that someone named Manuel was in to see pt last night and will be transporting pt today to [facility]. LEFTY placed a call to Nimo with Beth. Nimo states Manuel does work with Beth and plan is for Manuel to come to [facility] at 2:00pm to transport pt. Manuel will take pt to [place] so pt is able to sheepskin pickler his things and on the way to [place] Manuel has options for pt that pt is able to look into. LEFTY updated RN. Joanie Jensen SNUFF BLENDER, GARDEN EQUIPMENT MECHANIC
--- NOTE | 2020-02-23 10:32 | DCINST_ITS ---
- Discharge Diagnoses Current Active Problems: Current Active and Chronic Problems Polysubstance dependence (Acute) You will use the following diet at home:: No restrictions Discharge Activity: Return to Normal Activity Allergies/Adverse Reactions: Allergies amlodipine Allergy (Verified 02/19/20 13:13) Anaphylaxis Medications to take at Discharge Loperamide [Imodium] 2 mg PO Q4H PRN PRN #5 cap 02/23/20 Melatonin 10 mg PO QHS PRN PRN #20 tab 02/23/20 The following prescriptions were given: Loperamide [Imodium] 2 mg PO Q4H PRN PRN #5 cap PRN Reason: LOOSE STOOLS Transmission Status: Pending to [facility] Melatonin 10 mg PO QHS PRN PRN #20 tab PRN Reason: Insomnia Transmission Status: Pending to [facility] Primary Care Physician: CITLALLI SALGUERO [Other] Please follow up with your Primary Care Physician in: 1 Week Test Results: Test results from this visit will be discussed in further detail at your follow- up appointment, if applicable. Please Follow Up With: [facility] When: As scheduled Proposed Discharge Date: 02/23/20
--- NOTE | 2020-02-23 10:33 | DS.PCM_ITS ---
<Mali Langford CELL GENETICIST - Last Filed: 02/23/20 10:47> Discharge Date and Diagnosis - Problem List Patient Problems: Active and Suspected Problems Polysubstance dependence (Acute) Date of Admission: 02/19/20 Date of Discharge: 02/23/20 - Primary Discharge Diagnosis Acute Problems: Active Problems 1. Suboxone detox 2. History of polysubstance abuse 3. Alcohol dependence Hospital Course and Treatment Operations: None Procedures: None Summary of Care Provided: The patient is a 39 year old M admitted 02/19/2020 due to detox from Suboxone. 1. Suboxone detox-medical stabilization per protocol. As needed regimen for somatic complaints during admission. Tox screen negative except cannabinoids. Patient has been off of Suboxone for approximately 1 week now. Agreeable to residential treatment at discharge, arranged by Beth. 2. History of polysubstance abuse-reports marijuana use. Denies other substance use. Tox screen positive for marijuana, negative for other substances. 3. Alcohol dependence-states he just recently began using alcohol to cope. Reports 6 beers per day. Denies withdrawal history. CIWA protocol. Medical stabilization per alcohol withdrawal protocol. Phenobarbital taper completed. Residential treatment at discharge as noted above. General: Alert, Oriented x3, Cooperative HEENT: Atraumatic, PERRLA, EOMI, Normocephalic Neck: Supple, No JVD, Negative Carotid Bruits Lungs: Clear to auscultation, Normal air movement Cardiovascular: Regular rate, No murmurs Abdomen: Bowel Sounds Present, Soft, Non Tender, Non-Distended Extremities: No clubbing, No cyanosis, No edema, Capillary Refill Less than 3 Seconds Skin: No rashes, No breakdown Musculoskeletal: No Tenderness to Palpation of Joints or Extremities Neurological: Cranial nerves II-XII grossly intact, Neuro grossly intact Psych/Mental Status: Normal Affect, Appropriate Patient seen and examined prior to discharge. Physical assessment as noted above. Patient is stable for discharge with follow up recommendations as noted above. This patient was seen by STEVIE Quick under the supervision of Dr. Blas. Patient Problems: Active and Suspected Problems Polysubstance dependence (Acute) - Physical Exam Vitals/I&O's: Vital Signs Temp Pulse Resp BP Pulse Ox 97.2 F L 78 18 150/85 H 100 02/23/20 07:39 02/23/20 07:39 02/23/20 07:39 02/23/20 07:39 02/23/20 07:39 Oxygen Delivery Method Room Air Weight: 259 lb Body Mass Index (BMI) 37.1 Intake and Output for Last 24 Hours 02/21/20 02/22/20 02/23/20 23:59 23:59 23:59 Intake Total 1200 / 1200 700 / 700 Balance 1200 / 1200 700 / 700 Laboratory Results 02/23/20 05:35: WBC 6.6, RBC 4.88, Hgb 16.4, Hct 47.7, MCV 97.7 H, MCH 33.6 H, MCHC 34.4, RDW Std Deviation 50.2 H, RDW Coeff of Dennis 13.8, Plt Count 236, MPV 9.8, Immature Gran % (Auto) 0.300, Neut % (Auto) 69.0, Lymph % (Auto) 20.0, [place] % (Auto) 8.7, Eos % (Auto) 1.4, Baso % (Auto) 0.6, Absolute Neuts (auto) 4.6, Absolute Lymphs (auto) 1.33, Nucleated RBC % 0 02/23/20 05:35: Sodium 139, Potassium 3.6, Chloride 105, Carbon Dioxide 29.0, Anion Gap 5, BUN 11, Creatinine 0.90, Estim Creat Clear Calc 112.65, Est GFR (MDRD) Af Amer 119, Est GFR (MDRD) Non-Af 99, BUN/Creatinine Ratio 12.2, Glucose 101, Calcium 9.2, Total Bilirubin 0.50, AST 16, ALT 36, Alkaline Phosphatase 115, Total Protein 7.5, Albumin 4.0, Globulin 3.5, Albumin/Globulin Ratio 1.1 Current Medications Clonidine (Clonidine Hcl 0.1 Mg Tablet) 0.1 mg PO Q8H PRN PRN PRN Reason: RESTLESSNESS Dicyclomine HCl (Dicyclomine 10 Mg Capsule) 20 mg PO Q6H PRN PRN PRN Reason: Abdominal Discomfort Folic Acid (Folic Acid 1 Mg Tablet) 1 mg PO DAILY@0800 [facility] Last Admin: 02/23/20 07:48 Dose: Not Given Documented by: Gabapentin (Gabapentin 100 Mg Capsule) 100 mg PO Q6H PRN PRN PRN Reason: ANXIETY Hydroxyzine Pamoate (Hydroxyzine Jaylene 25 Mg Capsule) 50 mg PO Q6H PRN PRN PRN Reason: mild anxiety Last Admin: 02/20/20 03:32 Dose: 50 mg Documented by: Loperamide HCl (Loperamide 2 Mg Capsule) 2 mg PO Q4H PRN PRN PRN Reason: LOOSE STOOLS Last Admin: 02/22/20 17:49 Dose: 2 mg Documented by: Melatonin (Melatonin 10 Mg Tablet) 10 mg PO QHS PRN PRN PRN Reason: INSOMNIA Last Admin: 02/22/20 21:00 Dose: 10 mg Documented by: Methocarbamol (Methocarbamol 750 Mg Tablet) 1,500 mg PO Q6H PRN PRN PRN Reason: MUSCLE SPASM Ondansetron HCl (Ondansetron 8 Mg Tablet) 8 mg PO Q8H PRN PRN PRN Reason: NAUSEA Phenobarbital (Phenobarbital 32.4 Mg Tablet) 32.4 mg PO Q6H ALY[facility]; Taper Stop: 02/24/20 02:59 Last Admin: 02/23/20 09:14 Dose: 32.4 mg Documented by: Sodium Chloride (0.9% Saline Lock 10 Ml Syringe) 10 - 40 ml IV UD PRN PRN Reason: SALINE FLUSH Thiamine HCl (Thiamine Hydrochloride 100 Mg Tablet) 100 mg PO DAILYCM ALYSA Last Admin: 02/23/20 07:48 Dose: Not Given Documented by: Trazodone HCl (Trazodone 100 Mg Tablet) 100 mg PO QHS PRN PRN PRN Reason: INSOMNIA Discharge Diet: No Restrictions Discharge Activity: Return to Normal Activity Home Medications: Medications to take at Discharge Loperamide [Imodium] 2 mg PO Q4H PRN PRN #5 cap 02/23/20 Melatonin 10 mg PO QHS PRN PRN #20 tab 02/23/20 Following Prescriptions Were Given to Patient: Loperamide [Imodium] 2 mg PO Q4H PRN PRN #5 cap PRN Reason: LOOSE STOOLS Transmission Status: Received by [facility] Melatonin 10 mg PO QHS PRN PRN #20 tab PRN Reason: Insomnia Transmission Status: Received by [facility] Primary Care Physician: CITLALLI SALGUERO [Other] Please follow up with your Primary Care Physician in: 1 Week Please Follow Up With: [facility] When: As scheduled Disposition: Home Minutes spent on discharge:: 35 Patient Condition:: Stable Medical Necessity - Tobacco Use Smoking Status: Never smoker Tobacco Use: Non-smoker Meaningful Use Info Meaningful Use Diagnoses (Choose all that apply): None applicable <Marsha Blasa - Last Filed: 02/23/20 15:36> Discharge Date and Diagnosis - Primary Discharge Diagnosis Acute Problems: Active Problems Polysubstance dependence (Acute) Hospital Course and Treatment Summary of Care Provided: This patient was seen in conjunction with Mali Langford NP. I have independently interviewed and examined the patient and reviewed pertinent historical, laboratory, and other data. Please refer to her note for patient's presentation, findings, and recommendations. 39-year-old male with past medical history of polysubstance use disorder, who was on Suboxone comes in for detox from Suboxone. Stated that he has been on Suboxone since 2012. He was trying to wean off his Suboxone but developed significant opioid withdrawal. He also drinks a lot about 6 packs of beer a day. Admitted [facility] floor and managed on the buprenorphine withdrawal protocol. Patient did well. He was seen by outpatient behavioral health and discharged to follow-up with them in the outpatient. On the day of discharge, patient was seen and examined. He denied any new complaints. Physical Exam: Gen: Comfortable, not pale, not jaundiced, alert oriented x3 CVS:HS I +II, regular, no murmurs RESP: CTA GI: BS present and normal, nontender, no palpable organs EXT:No edema - Physical Exam Vitals/I&O's: Vital Signs Temp Pulse Resp BP Pulse Ox 98.1 F 82 18 150/82 H 98 02/23/20 13:18 02/23/20 13:18 02/23/20 13:18 02/23/20 13:18 02/23/20 13:18 Oxygen Delivery Method Room Air Weight: 117.48 kg Body Mass Index (BMI) 37.1 Intake and Output for Last 24 Hours 02/21/20 02/22/20 02/23/20 23:59 23:59 23:59 Intake Total 1200 / 1200 700 / 700 Balance 1200 / 1200 700 / 700 Laboratory Results 02/23/20 05:35: WBC 6.6, RBC 4.88, Hgb 16.4, Hct 47.7, MCV 97.7 H, MCH 33.6 H, MCHC 34.4, RDW Std Deviation 50.2 H, RDW Coeff of Dennis 13.8, Plt Count 236, MPV 9.8, Immature Gran % (Auto) 0.300, Neut % (Auto) 69.0, Lymph % (Auto) 20.0, [place] % (Auto) 8.7, Eos % (Auto) 1.4, Baso % (Auto) 0.6, Absolute Neuts (auto) 4.6, Absolute Lymphs (auto) 1.33, Nucleated RBC % 0 02/23/20 05:35: Sodium 139, Potassium 3.6, Chloride 105, Carbon Dioxide 29.0, Anion Gap 5, BUN 11, Creatinine 0.90, Estim Creat Clear Calc 112.65, Est GFR (MDRD) Af Amer 119, Est GFR (MDRD) Non-Af 99, BUN/Creatinine Ratio 12.2, Glucose 101, Calcium 9.2, Total Bilirubin 0.50, AST 16, ALT 36, Alkaline Phosphatase 115, Total Protein 7.5, Albumin 4.0, Globulin 3.5, Albumin/Globulin Ratio 1.1 Inpatient E&M: 62450 Disch Hosp
--- NOTE | 2020-02-23 10:46 | PHA.DC.MR ---
Pharmacy Service has performed discharge medication reconciliation for this patient. Home Medications Loperamide [Imodium] 2 mg PO Q4H PRN PRN #5 cap 02/23/20 Melatonin 10 mg PO QHS PRN PRN #20 tab 02/23/20 The patient's discharge medication list was reviewed for discrepancies and discrepancies were resolved.
[2020-02-23] MEDS: Loperamide 2 MG Capsule PO (13:16)
[2020-02-23 13:18] VITALS: BP 150/82; PULSE 82; RESP 18; TEMP 36.7; O2SAT 98
== END 2020-02-23 14:07 | disposition home or self-care (01) | DRG 773 ==
LOC: ED 16:50 → MS3 17:23
PROVIDERS: Admitting Provider Student in an Organized Health Care Education/Training Program; Emergency Provider Physician Assistant Medical; Visit Provider Internal Medicine
DX: F11.23 Opioid dependence with withdrawal (principal); F10.20 Alcohol dependence, uncomplicated; E03.9 Hypothyroidism, unspecified; G47.30 Sleep apnea, unspecified; K21.9 Gastro-esophageal reflux disease without esophagitis
CPT/HCPCS: 36415; 80048; 80053; 80307; 80320; 85025; 99283; G0480

== ENCOUNTER 2020-06-20 22:22 | Emergency (ER) | payer MEDICAID, SELFPAY ==
[2020-06-20 22:23] VITALS: BP 130/81
[2020-06-20 22:24] VITALS: PULSE 94; RESP 19; TEMP 37.6; O2SAT 98; BMI 34.0
[2020-06-20 22:26] VITALS: BP 130/81; PULSE 94; RESP 19; TEMP 37.6; O2SAT 98
--- NOTE | 2020-06-20 22:39 | ED.VIS.GEN ---
History of Present Illness Chief Complaint: General Illness Informant: Patient Narrative: Patient presents with coronavirus symptoms. He is day 11 after symptoms started. He had a positive test approximately a week ago. He is self quarantining at a hotel and stated he is having anxiety. He feels weak and fatigue and muscle aches. His thighs hurt intermittently. Most of his body hurts however. He has intermittent headache and intermittent fevers. He has had loss of smell and taste. Any shortness of breath or respiratory symptoms other than his cough. No home treatment. He is not taking any symptomatic management. - Past Medical History (1) Polysubstance dependence Status: Acute Past Medical History - Allergies and Home Meds Allergies/Adverse Reactions: Allergies amlodipine Allergy (Verified 06/20/20 22:27) Anaphylaxis Primary Care Physician: Samson Hernandez MD [STAFF PHYSICIAN] - Prior records reviewed: Yes Past Medical History: - Surgical History: - - Reviewed Lives: With Family Smoking Status: Never smoker Alcohol: None Drugs: None - Family History Maternal Family History: Reports: - - Denies known medical history including cardiac history. Paternal Family History: Reports: - - Denies known medical history including cardiac history. Review of Systems General: Reports: Fever. Denies: Chills, Sweats Eyes: Denies: Visual changes - bilaterally, Diplopia ENT: Denies: Rhinorrhea, Sore throat Cardiovascular: Denies: Chest pain, Palpitations Respiratory: Denies: Dyspnea, Cough, Dyspnea on exertion Gastrointestinal: Denies: Abdominal pain, Nausea, Vomiting, Diarrhea, Melena, Hematochezia Genitourinary: Denies: Dysuria, Hematuria, Frequency Musculoskeletal: Reports: Myalgias, Arthralgias, Back pain, Extremity Pain Skin: Denies: Rash, Wounds Neurological: Reports: Headache. Denies: Weakness, Numbness Psych: Reports: Anxiety Physical Exam Vital Signs/Narrative: Vital Signs Temp Pulse Resp BP Pulse Ox 06/20/20 22:26 99.7 F H 94 19 H 130/81 H 98 06/20/20 22:24 99.7 F H 94 19 H 98 06/20/20 22:23 130/81 H General: Well nourished, Well developed, No Acute Distress Head: Normocephalic, Atraumatic Eyes: Perrl, EOMI ENT: Moist mucous membranes, No rhinorrhea Neck: Supple, Nontender Cardiovascular: Regular rate, Regular rhythm, No murmurs Respiratory: No distress, CTA bilaterally, Chest nontender Abdomen: Soft, Nontender, Nondistended, Normal bowel sounds Back: Nontender, Normal Inspection Extremities: Nontender, No edema Skin: Normal color, No rash Neurological: Alert, Oriented x3, Cranial nerves II-XII grossly intact, Normal Strength, Normal Sensation Psychological: Normal affect, Normal Mood Diagnostic/Tx/Re-eval - Medical Decision Making Patient exam is relatively normal. Lungs are completely clear his pulse ox is 100%. I do not feel he has a pneumonitis or needs a chest x-ray. Given IV fluids Toradol and a dose of Ativan for anxiety. I feel the like he is stuck in a hotel and anxiety is increasing as he wants his symptoms to go down but are still persistent. He understands this may take 2 to 3 weeks for his symptoms to subside. He did not know that prior to coming in today. Basic lab work obtained. Platelet count 138. Sodium borderline low at 135. Mildly low calcium. Patient resting comfortably on reevaluation. At this time he is more relaxed. All his questions were answered he will follow-up as an outpatient do not feel he needs an ultrasound of his legs or has a blood clot in his legs. He has soreness throughout the diffuse leg with no physical findings of a blood clot ED Disposition - Plan for ED Patient: Disposition: Home or Assisted Living Diagnosis: Coronavirus infection Instructions: Coronavirus Disease 2019 (COVID-19): Overview Referrals: Samson Hernandez MD [STAFF PHYSICIAN] -
[2020-06-20 23:01] LABS: Absolute Neutrophil Count 6.1 X10^3/uL (2.0-7.7); Basophil# 0.02 X10^3/uL; Basophil% 0.3 % (0-1); Hematocrit 41.8 % (40-54); Hemoglobin 14.4 g/dL (13.0-16.5); Lymphocyte % 9.3 % (19-41); Mean Corp Hgb Conc 34.4 g/dL (32-36); Mean Corpuscular Hgb 32.8 pg (27.0-32.0); Mean Corpuscular Volume 95.2 fL (80-94); Mean Platelet Vol. 11.3 fl (6.2-12.0); Monocyte# 0.62 X10^3/uL; Monocyte% 8.2 % (0-10); NRBC Flagged by Analyzer 0 % (0-5); Neutrophil # 6.13 X10^3/uL (2.7-7.7); Neutrophil % 81.5 % (47-70); POSITIVE COUNT YES; RBC Distribution Width CV 12.1 % (11.6-14.6); RBC Distribution Width SD 42.7 fl (35.1-43.9); Red Blood Count 4.39 M/mm3 (4.6-6.2); White Blood Count 7.5 K/mm3 (4.4-11.0)
[2020-06-20] MEDS: Ketorolac 15 MG/ML Vial IV (23:02)
[2020-06-20] MEDS: 0.9% Normal Saline 1,000 ML 1000 ML IV (23:03)
[2020-06-20 23:04] LABS: Differential Indicated SCAN CRITERIA MET
[2020-06-20] MEDS: LORazepam 2 MG/ML Syringe 1 MG IV (23:06)
[2020-06-20 23:26] LABS: Differential Comment SCANNED; Platelet Count 138 K/mm3 (150-450)
[2020-06-20 23:54] LABS: Anion Gap 5 (5-15); BUN 12 mg/dL (7-18); BUN/Creat Ratio 14.1 RATIO (10-20); Calcium,Total 8.1 mg/dL (8.5-10.1); Chloride 104 mmol/L (98-107); Creatinine, Serum 0.85 mg/dL (0.70-1.30); EST Glomerular Filtration Rate 105 mL/min (>60); Est Glom Filt Rate - Afr Amer 127 mL/min (>60); Estimated Creatinine Clearance 118.09 ml/min; Glucose 112 mg/dL (74-106); Potassium 3.5 mmol/L (3.5-5.1); Sodium Level 135 mmol/L (136-145)
[2020-06-21 00:15] VITALS: BP 124/82; PULSE 81; RESP 18; O2SAT 98
[2020-06-21 05:01] VITALS: RESP 16
== END 2020-06-21 07:05 | disposition home or self-care (01) ==
PROVIDERS: Emergency Provider Emergency Medicine
DX: U07.1 COVID-19 (principal); F19.20 Other psychoactive substance dependence, uncomplicated
CPT/HCPCS: 80048; 85025; 96361; 96374; 96375; 99284; J7030; A4216